=== PATIENT | male | born 1955 | race Caucasian/White ===

== ENCOUNTER → 2017-10-27 | Outpatient (CLI) | payer BC ==
[~2017-10-27] MED LIST: ALBUTEROL SULF8.5 GM INH; Aspirin PO; DILTIAZEM 24HR120 M1 PO; DILTIAZEM HCL60 MG PO; LOSARTAN POTASS50 MG PO; PEPCID20 MG PO; TESTOSTERONE GEL TOP
--- NOTE | 2017-10-27 16:28 | Diagnostic Imaging Report ---
PROCEDURE:US RETROPERITONEAL ( KIDNEY ). COMPARISON:None. INDICATIONS:Incomplete Bladder Emptying TECHNIQUE: Villeda-scale and color sonographic images of the bilateral kidneys and bladder where obtained in transverse and longitudinal planes. FINDINGS: Exam limited by patient's body habitus and overlying bowel gas RIGHT KIDNEY: 9.8 cm. cortex 2.8 cm. Cysts: None Solid masses: None Stones: None Hydronephrosis: None Echogenicity: Normal LEFT KIDNEY: 11.1 cm, cortex 2.6 cm Cysts: None Solid masses: None Stones: None Hydronephrosis: None Echogenicity: Normal Bladder: No focal lesions. No wall thickening. Bilateral ureteral jets are identified. Prevoid bladder volume 145.2 CC. Postvoid bladder volume 54.7 CC. Prostate: 5.1 x 4.2 x 4.1 cm (estimated volume 46.2 CC). The prostate has a nodular, heterogeneous appearance, and the superior portion projects into the inferior aspect of the bladder. CONCLUSION: 1. Normal bilateral renal size, and echogenicity. No hydronephrosis, stones, or focal lesions. 2. No significant postvoid residual. 3. Enlarged, heterogeneous, nodular prostate, which projects into the inferior aspect of the bladder. Jeff Chau M.D. Dictated by: Jeff Chau M.D. on 10/27/2017 at 16:38 Electronically approved by: Jeff Chau M.D. on 10/27/2017 at 16:38
--- NOTE | 2017-10-27 16:28 | Diagnostic Imaging Report ---
PROCEDURE:URINARY BLADDER ULTRASOUND COMPARISON:None. INDICATIONS:Incomplete Bladder Emptying CONCLUSION: Please refer to renal ultrasound performed at the same date and time for full dictated report. Jeff Chau M.D. Dictated by: Jeff Chau M.D. on 10/27/2017 at 16:38 Electronically approved by: Jeff Chau M.D. on 10/27/2017 at 16:38
--- NOTE | 2017-10-27 16:49 | Diagnostic Imaging Report ---
PROCEDURE:ABDOMEN 1 VIEW (KUB) COMPARISON:Patients [facility], US, US RETROPERITONEAL ( KIDNEY )., 10/27/2017, 15:05. INDICATIONS:PROSTATE ENLARGED INTO BLADDER FINDINGS: Nonobstructive bowel gas pattern with moderate amount of retained stool. No air-filled, dilated loops of bowel. No abnormal calcifications project over the renal shadows, expected course of the ureters or bladder. Left pelvic phlebolith. Degenerative disc changes in the lumbosacral spine, with presence of large osteophytes at L2-L3, L3-L4, and L4-L5. No lytic or blastic lesions. CONCLUSION: 1. Nonobstructive bowel gas pattern. 2. No lytic or blastic lesions. Jeff Chau M.D. Dictated by: Jeff Chau M.D. on 10/27/2017 at 16:58 Electronically approved by: Jeff Chau M.D. on 10/27/2017 at 16:58
== END ==
LOC: US 14:30
PROVIDERS: ATTEND Urology
DX: R39.14 Feeling of incomplete bladder emptying (principal); R31.9 Hematuria, unspecified
CPT/HCPCS: 74018; 76770; 76857

== ENCOUNTER 2019-01-03 03:20 | Observation (INO) | payer BC ==
[2019-01-03] VITALS (8 sets, daily range): BP systolic 101–147; BP diastolic 54–70
[~2019-01-03] VITALS: Ht 193 cm; Wt 109.3 kg
--- OUTSIDE RECORDS SUMMARY | 2019-01-03 03:24 | XMS REPORT ---
Author Author [facility] Address Unknown Phone Unavailable Care Team Providers Care Tank Car Loader Name Role Phone MISTY, CHARISSE Unavailable Unavailable Payers Payer Name Policy Type Policy Number Effective Date Expiration Date Problems This patient has no known problems. Allergies, Adverse Reactions, Alerts Allergy Name Allergy Type Status Severity Reaction(s) Onset Date Inactive Date Treating Clinician Comments No Known Allergies DA Active U 2018-12-20 00:00:00 Medications This patient has no known medications. Results Test Description Test Time Test Comments Text Results Atomic Results Result Comments BASIC METABOLIC PANEL 2018-12-20 13:25:00 SODIUM (test code=NA) 140 mEq/L 134-147 POTASSIUM (test code=K) 4.0 mEq/L 3.4-5.0 CHLORIDE (test code=CL) 108 mEq/L 100-108 CARBON DIOXIDE (test code=CO2) 28 mEq/L 21-33 ANION GAP (test code=GAP) 8 0-20 GLUCOSE (test code=GLU) 92 mg/dL 70-110 BLOOD UREA NITROGEN (test code=BUN) 18 mg/dL 7-18 GLOMERULAR FILTRATION RATE (test code=GFR) 67.8 80-90 Units of measure=ml/min/1.73 m2 CREATININE (test code=CREAT) 1.1 mg/dL 0.6-1.3 CALCIUM (test code=CA) 8.7 mg/dL 8.0-10.5 PROTHROMBIN [id number] 13:15:00* Test Item Value Reference Range Comments PROTHROMBIN TIME PATIENT (test code=PTP) 16.5 SECONDS 9.3-12.9 INTERNATIONAL NORMAL RATIO (test code=INR) 1.5 0.8-1.2 TARGET INR BY INDICATION Indication INR1. Prophylaxis of venous thrombosis 2.0 - 3.0 (orthopedic surgery), Prophylaxis of venous thrombosis (other than high-risk surgery), Treatment of Deep Vein Thrombosis/Pulmonary Embolism, Prevention of systemic embolism - Tissue heart valves, Acute Myocardial Infarction (to prevent systemic embolism), Valvular heart disease, Atrial Fibrillation, Bileaflet mechanical valve in aortic position.2. Mechanical prosthetic valves (high risk), 2.5 - 3.5 Presence of Lupus Anticoagulant or Antiphospholipid Antibodies, Prevention of systemic embolism - Acute Myocardial Infarction (to prevent recurrent infarct). CBC W/AUTO [id number] 13:03:00* Test Item Value Reference Range Comments WHITE BLOOD CELL (test code=WBC) 6.69 x10 3/uL 4.5-11.0 RED BLOOD CELL (test code=RBC) 4.27 x10 6/uL 4.00-5.60 HEMOGLOBIN (test code=HGB) 13.1 g/dL 12.5-16.9 HEMATOCRIT (test code=HCT) 40.0 % 37.5-50.7 MEAN CELL VOLUME (test code=MCV) 93.7 fL 81.0-99.0 MEAN CELL HGB (test code=MCH) 30.7 pg 27.0-33.0 MEAN CELL HGB CONCETRATION (test code=MCHC) 32.8 g/dL 33.0-37.0 RED CELL DISTRIBUTION WIDTH CV (test code=RDW) 12.2 % 11.5-14.5 RED CELL DISTRIBUTION WIDTH SD (test code=RDW-SD) 41.8 fL 37.0-54.0 PLATELET COUNT (test code=PLT) 214 x10 3/uL 150-400 MEAN PLATELET VOLUME (test code=MPV) 10.1 fL 7.0-9.0 NEUTROPHIL % (test code=NT%) 65.4 % 56.0-77.0 IMMATURE GRANULOCYTE % (test code=IG%) 0.3 % 0.0-2.0 LYMPHOCYTE % (test code=LY%) 20.5 % 14.0-32.0 MONOCYTE % (test code=MO%) 10.2 % 4.8-9.0 EOSINOPHIL % (test code=EO%) 2.7 % 0.3-3.7 BASOPHIL % (test code=BA%) 0.9 % 0.0-2.0 NUCLEATED RBC % (test code=NRBC%) 0.0 % 0-0 NEUTROPHIL # (test code=NT#) 4.38 x10 3/uL 2.0-7.6 IMMATURE GRANULOCYTE # (test code=IG#) 0.02 x10 3/uL 0.00-0.03 LYMPHOCYTE # (test code=LY#) 1.37 x10 3/uL 1.0-3.8 MONOCYTE # (test code=MO#) 0.68 x10 3/uL 0.1-0.8 EOSINOPHIL # (test code=EO#) 0.18 x10 3/uL 0.0-0.2 BASOPHIL # (test code=BA#) 0.06 x10 3/uL 0.0-0.2 NUCLEATED RBC # (test code=NRBC#) 0.00 x10 3/uL 0.0-0.1 MANUAL DIFF REQUIRED (test code=MDIFF) NO - XR CHEST 2 [id number] 12:59:00 FAX: Samuel Chamberlain MD [phone] [place]: St: PRE FAX: Morgan Quevedo MD [phone] Name: WEN MAY [facility] : 1955 Age/S: 63/M [address] [place] [address] Unit #: [id number] Loc: [place] [address] Phys: Morgan May MD Acct: [id number] Dis Date: Status: PRE [facility] PHONE #: [phone] Exam Date: 12/20/2018 1250 FAX #: [phone] Reason: PREOP EXAMS: CPT CODE: [id number] XR CHEST 2 V 79399 EXAM: PA and lateral chest. EXAM DATE: December 20, 2018 CLINICAL HISTORY: Preop COMPARISON: None Cardiomediastinal silhouette is within normal limits. The lungs appear free of acute disease. Marked degenerative changes are identified in the intrathoracic aorta with a mild scoliosis noted in the upper thoracic spine. Fixation device is noted in the lower cervical region. IMPRESSION: No evidence of acute cardiopulmonary disease. at 3903 Reported and signed by: Tammy Hernandez M.D. CC: Samuel Lockhart MD; Morgan May MD Technologist: Sejal Loving RT(R), RTT Trnscrd Date/Time/By: 12/20/2018 (0985) : By: LeslieCER Orig Print D/T: S: 12/20/2018 (2165) PAGE 1 Signed Report ABDOMEN 1 VIEW (KUB) [place] [address] Patient Name: WEN MAY MR #: [id number] : Age/Sex: 62/M Req #: [id number] Adm Physician: Ordered by: CHARISSE JAY MD Report #: [id number] Location: Room/Bed: Procedure: [id number] DX/ABDOMEN 1 VIEW (KUB) Exam Date: 10/27/17 Exam Time: 1450 REPORT STATUS: Signed PROCEDURE: ABDOMEN 1 VIEW (KUB) COMPARISON: [facility], US, US RETROPERITONEAL ( KIDNEY )., 10/27/2017, 15:05. INDICATIONS: PROSTATE ENLARGED INTO BLADDER FINDINGS: Nonobstructive bowel gas p attern with moderate amount of retained stool. No air-filled, dilated loops of bowel. No abnormal calcifications project over the renal shadows, expected course of the ureters or bladder. Left pelvic phlebolith. Degenerative d isc changes in the lumbosacral spine, with presence of large osteophytes at L 2-L3, L3-L4, and L4-L5. No lytic or blastic lesions. CONCLUSION: 1. Nonobstructive bowel gas pattern. 2. No lytic or blastic lesions. Lorie Chau M.D. Dictated by: Lorie Chau M.D. on 10/27/2017 at 16:58 Electronically approved by: Lorie Chau M.D. on 018 at 16:58 Dictated By: LORIE CHAU MD Electronically Si gned By: LORIE CHAU MD on 10/27/17 1658 Transcribed By: MARY on 10/27/17 1 658 COPY TO: CHARISSE JAY MD RENAL RETROPERITONEAL COMP [place] [address] Patient Name: WEN MAY MR #: [id number] : Age/Sex: 62/M Req #: [id number] Adm Physician: Ordered by: CHARISSE JAY MD Report #: [id number] Location: US Room/Bed: Procedure: [id number] US/US RENAL RETROPERITONEAL COMP E xam Date: 10/27/17 Exam Time: 1505 REPORT STATU S: Signed PROCEDURE: US RETROPERITONEAL ( KIDNEY ). COMPARISON: None. INDICATIONS: Incomplete Bladder Emptying TECHNIQUE: Villeda-scale and color so nographic images of the bilateral kidneys and bladder where obtained in trans verse and longitudinal planes. FINDINGS: Exam limited by patient's body habitus and overlying bowel gas RIGHT KIDNEY: 9.8 cm. cortex 2.8 cm. Cysts: None Solid masses: None Stones: None Hydronephrosis: None Ech ogenicity: Normal LEFT KIDNEY: 11.1 cm, cortex 2.6 cm Cysts: None Aliya d masses: None Stones: None Hydronephrosis: None Echogenicity: Normal Bladder: No focal lesions. No wall thickening. Bilateral ureteral jets are identified. Prevoid bladder volume 145.2 CC. Postvoid bladder volume 54.7 CC. Prostate: 5.1 x 4.2 x 4.1 cm (estimated volume 46.2 CC). The prostate has a nodular, heterogeneous appearance, and the superior portion projects into the inferior aspect of the bladder. CONCLUSION: 1. Normal bilat eral renal size, and echogenicity. No hydronephrosis, stones, or focal lesion s. 2. No significant postvoid residual. 3. Enlarged, heterogeneous, nodular prostate, which projects into the inferior aspect of the bladder. Lorie Chau M.D. Dictated by: Lorie Chau M.D. on 10/27/2017 at 16:38 Electronically approved by: Lorie Chau M.D. on 018 at 16:38 Dictated By: LORIE CHAU MD Electronically Si gned By: LORIE CHAU MD on 10/27/17 1638 Transcribed By: MARY on 10/27/17 1 638 COPY TO: CHARISSE JAY MD PELVIC (NON OB) FROST OR F/U [place] [address] Patient Name: WEN MAY MR #: [id number] : Age/Sex: 62/M Req #: [id number] Adm Physician: Ordered by: CHARISSE JAY MD Report #: [id number] Location: US Room/Bed: Procedure: [id number] US/US PELVIC (NON OB) FROST OR F/U E xam Date: 10/27/17 Exam Time: 1525 REPORT STATU S: Signed PROCEDURE: URINARY BLADDER ULTRASOUND COMPARISON: None. IND ICATIONS: Incomplete Bladder Emptying CONCLUSION: Please refer to r enal ultrasound performed at the same date and time for full dictated report. Lorie Chau M.D. Dictated by: Lorie Chau M.D. on 10/27/2017 at 16:38 Electronically approved by: Joo Aguilera on 10/27/2017 at 16:38 Dictated By: LORIE CHAU MD Elect ronically Signed By: LORIE CHAU MD on 10/27/17 1638 Transcribed By: MARY cooper 10/27/17 1638 COPY TO: CHARISSE JAY MD
--- NOTE | 2019-01-03 04:15 | Diagnostic Imaging Report ---
EXAMINATION: CHEST SINGLE (PORTABLE) COMPARISON: Chest x-ray 07/10/2015 INDICATION: ^chest pain ^Y DISCUSSION: Frontal view of the chest obtained at 0404 hours. HEART AND MEDIASTINUM: The heart is top normal in size. The aorta is mildly tortuous. LINES: None. LUNGS: The lungs are well inflated and clear. No pneumonia or pulmonary edema. PLEURA: No pleural effusion or pneumothorax. BONES AND SOFT TISSUES: No focal osseous lesion. Fusion plate in the lower cervical spine is partially imaged. The soft tissues are normal. IMPRESSION: No acute cardiopulmonary disease. Signed by: Dr. Haim Gillespie MD on 01/03/2019 4:12 AM
[2019-01-03 04:29] LABS: BASOPHILS % 0.4 % (0.0-1.0); EOSINOPHILS # (AUTO) 0.1 (0.0-0.4); EOSINOPHILS % 1.1 % (0.0-6.0); HEMATOCRIT 35.3 % (38.2-49.6); HEMOGLOBIN 11.8 g/dL (14.0-18.0); LYMPHOCYTES # (AUTO) 1.1 (1.0-3.2); LYMPHOCYTES % 14.8 % (18.0-39.1); MEAN CORPUSCULAR HEMOGLOBIN 30.5 pg (28-32); MEAN CORPUSCULAR HGB CONC 33.4 g/dL (31-35); MEAN CORPUSCULAR VOLUME 91.2 fL (81-99); MONOCYTES # (AUTO) 0.8 (0.2-0.8); MONOCYTES % 11.3 % (4.4-11.3); NEUTROPHILS # (AUTO) 5.3 (2.1-6.9); NEUTROPHILS % 72.1 % (38.7-80.0); PLATELET COUNT 180 x10e3/uL (140-360); RED BLOOD COUNT 3.87 x10e6/uL (4.3-5.7); RED CELL DISTRIBUTION WIDTH 12.4 % (11.7-14.4)
[2019-01-03 04:46] LABS: ALANINE AMINOTRANSFERASE 17 IU/L (0-55); ALBUMIN 3.6 g/dL (3.5-5.0); ALBUMIN/GLOBULIN RATIO 1.2 (0.8-2.0); ALKALINE PHOSPHATASE 44 IU/L (40-150); ANION GAP 12.4 mmol/L (8-16); BLOOD UREA NITROGEN 13 mg/dL (7-26); BUN/CREATININE RATIO 13 (6-25); CALCIUM 9.2 mg/dL (8.4-10.2); CARBON DIOXIDE 24 mmol/L (22-29); CHLORIDE 109 mmol/L (98-107); CREATINE KINASE 156 IU/L (30-200); CREATININE, SERUM 1.01 mg/dL (0.72-1.25); EST GLOMERULAR FILTRATION RATE > 60 ML/MIN (60-); GLUCOSE 100 mg/dL (74-118); POTASSIUM 3.4 mmol/L (3.5-5.1); SODIUM 142 mmol/L (136-145)
[2019-01-03 04:52] LABS: INR 1.73; PARTIAL THROMBOPLASTIN TIME 35.9 seconds (23.8-35.5); PROTHROMBIN TIME 20.9 seconds (11.9-14.5)
[2019-01-03] MEDS ORDERED: PANTOPRAZOLE SO40 MG PO (05:15)
[2019-01-03] MEDS ORDERED: ATORVASTATIN CA20 MG PO (05:15)
[2019-01-03] MEDS ORDERED: AMIODARONE HCL200 MG PO (05:15)
[2019-01-03] MEDS ORDERED: VENTOLIN HFA18 GM INH (05:15)
[2019-01-03] MEDS ORDERED: TOPROL XL25 MG PO (05:15)
[2019-01-03] MEDS ORDERED: VALTREX500 MG PO (05:15)
[2019-01-03] MEDS ORDERED: PLAVIX75 MG PO (05:15)
[2019-01-03] MEDS ORDERED: XARELTO20 MG PO (05:15)
[2019-01-03] MEDS ORDERED: GABAPENTIN300 MG PO (05:15)
[2019-01-03] MEDS ORDERED: ALFUZOSIN HCL10 MG PO (05:15)
[2019-01-03] MEDS ORDERED: PROSCAR5 MG PO (05:15)
[2019-01-03] MEDS ORDERED: ALBUTEROL SULF 0.083% NEB SOLN 3 ML NEB NEB PRN (05:30)
[2019-01-03] MEDS: NITROGLYCERIN 2% OINT 1 GM PKT TOP SCH ×3 (06:00→18:06)
--- NOTE | 2019-01-03 06:41 | NUR ---
PATIENT RECEIVED FROM EMERGENCY DEPARTMENT PER WHEELCHAIR AT 0620; HE'S ALERT AND ORIENTED X4, NO RESPIRATORY DISTRESS OBSERVED. SKIN INTEGRITY INTACT, NO EDEMA NOTED TO THE EXTREMITIES. PATIENT C/O CHEST PAIN WITH PAIN SCORE #3, MEDICATED WITH SCHEDULE NITROGLYCERIN PATCH ORDERED. CALL LIGHT WITHIN EASY REACH, HE'S INSTRUCTED TO CALL FOR ASSISTANCE NEEDED.
[2019-01-03] MEDS ORDERED: NON-FORMULARY MEDICATION ([Aspirin] 81 MG) PO SCH (09:00)
[2019-01-03] MEDS ORDERED: METOPROLOL SUCCINATE 25 MG TAB XL PO SCH (09:00)
[2019-01-03] MEDS: AMIODARONE HCL 200 MG TAB PO SCH (09:00)
[2019-01-03] MEDS ORDERED: LOSARTAN POTASSIUM 25 MG TAB PO SCH (09:00)
[2019-01-03] MEDS: FINASTERIDE 5 MG TAB PO SCH (09:25)
[2019-01-03] MEDS: ASPIRIN 81 MG ENTERIC COATED PO SCH (09:25)
[2019-01-03] MEDS: CLOPIDOGREL BISULFATE 75 MG TAB PO SCH (09:25)
[2019-01-03] MEDS: VALACYCLOVIR HCL 500 MG TAB PO SCH (09:25)
[2019-01-03] MEDS ORDERED: ASPIRIN 81 MG CHEW TAB PO ONE (10:30)
[2019-01-03] MEDS ORDERED: ALPRAZOLAM 0.25 MG TAB PO PRN (10:45)
[2019-01-03] MEDS ORDERED: ALPRAZOLAM 0.5 MG TAB PO PRN (10:45)
[2019-01-03] MEDS: ACETAMINOPHEN 325 MG TAB PO PRN (12:45)
[2019-01-03 13:05] LABS: CREATINE KINASE MB 2.3 ng/mL (0-5.0)
--- NOTE | 2019-01-03 17:56 | History and Physical ---
CHIEF COMPLAINT: Mr. Turner is a pleasant 63-year-old man, who presented to the emergency room in the computing machine operator hours of the with a complaint of "I could feel every single heartbeat." HISTORY OF PRESENT ILLNESS: The patient adds that he had been discharged from [facility] earlier in the day of the after he had presented to them on Monday, the with the findings of myocardial infarction, was taken to the label operator and had a stent put in the diagonal vessel. By that cath report, it was a 2.25 x 12 mm Xience stent. That diagram indicates some residual stenosis at the origin of the diagonal and minimal other coronary artery disease and a good left ventricular function. The patient reports he has had intermittent chest pain over several months and actually had a cardiac catheterization performed at [facility] about 2 weeks earlier and told it was "okay." PAST MEDICAL HISTORY: Significant for sleep apnea, hyperlipidemia, and hypertension. He has had some episodes of atrial fibrillation in the past, but none in the last 2 years by his account. He has had a remote appendectomy and cervical spine surgery. CURRENT MEDICATIONS: At home include aspirin 81 mg daily, Clopidogrel 75 mg daily, Xarelto 20 mg daily, gabapentin 600 mg at bedtime, pantoprazole 40 mg at bedtime, atorvastatin 80 mg daily, finasteride 5 mg daily, losartan 50 mg twice a day, metoprolol 25 mg twice a day, amiodarone half of a 200 mg tablet daily, and valacyclovir 500 mg daily. SOCIAL HISTORY: He has not smoked in many years. REVIEW OF SYSTEMS: GI: The patient reports he has used sucralfate in the past for a possibility of esophageal problems, but he is not certain if he actually has any esophageal problem. PHYSICAL EXAMINATION: GENERAL: At this time shows a large white man, who is alert and comfortable. VITAL SIGNS: Reported 6 feet 2 inches tall, weight 241 pounds, blood pressure 147/70. HEAD, EYES, EARS, NOSE, AND THROAT: Unremarkable. NECK: No jugular venous distention THORAX: Heart sounds S1, S2 are equal. No murmurs. LUNGS: Clear. ABDOMEN: Protuberant. Healed right lower quadrant incision. EXTREMITIES: No cyanosis, clubbing, or edema. IMAGING DATA: EKG shows sinus rhythm with PACs and no ST or T-wave changes. His current PT and INR are 20.9 and 1.73. Glucose 100, potassium 3.4. His troponin is 1.9, but his CK and CK-MB are both normal. His BNP is 74. ASSESSMENTS: 1. Anxiety. 2. Recent diagonal coronary stenting. 3. Coronary artery disease with elevated troponin, but normal CK and CK-MB. 4. Hypertension. 5. Sleep apnea. 6. History of atrial fibrillation. PLAN: As he is currently in sinus rhythm, we will withhold his Xarelto and he will get no further sucralfate. We will monitor rhythm and symptoms and consider cardiac catheterization based on his progress. MD ERASTO Salinas/ESTER /[id number] cc: Samuel Lockhart
[2019-01-03] MEDS: LOSARTAN POTASSIUM 25 MG TAB PO SCH (18:06)
[2019-01-03] MEDS: METOPROLOL SUCCINATE 25 MG TAB XL PO SCH (18:06)
--- NOTE | 2019-01-03 19:03 | NUR ---
Got report from previous nurse. Call light within reach. Patient in bed.
[2019-01-03 20:39] LABS: CREATINE KINASE MB 1.8 ng/mL (0-5.0)
[2019-01-03] MEDS: GABAPENTIN 300 MG CAP PO SCH ×3 (20:54→21:00)
[2019-01-03] MEDS ORDERED: NON-FORMULARY MEDICATION (Alfuzosin Hcl 10 MG) PO SCH ×2 (21:00)
[2019-01-03] MEDS ORDERED: RIVAROXABAN 20 MG TABLET PO SCH (21:00)
[2019-01-03] MEDS ORDERED: ATORVASTATIN 20 MG TAB PO SCH (21:00)
[2019-01-03] MEDS ORDERED: PANTOPRAZOLE SOD 40 MG TABEC PO SCH (21:00)
[2019-01-03] MEDS ORDERED: ZOLPIDEM TARTRATE 5 MG TAB PO PRN (21:00)
[2019-01-04] VITALS (15 sets, daily range): BP systolic 101–141; BP diastolic 56–77
[2019-01-04] MEDS: NITROGLYCERIN 2% OINT 1 GM PKT TOP SCH ×3 (00:31→12:00)
[2019-01-04] MEDS: ACETAMINOPHEN 325 MG TAB PO PRN (06:14)
[2019-01-04 06:35] LABS: CREATINE KINASE MB 1.4 ng/mL (0-5.0)
--- NOTE | 2019-01-04 06:45 | NUR ---
Called and talked to Dr. Perez about patient's troponin being 1.346. He said okay.
--- NOTE | 2019-01-04 07:03 | NUR ---
Gave report to oncoming nurse. Call light within reach. patient in bed.
[2019-01-04 07:14] LABS: CHOL/HDL RATIO 2.8 (3.9-4.7)
[2019-01-04] MEDS: METOPROLOL SUCCINATE 25 MG TAB XL PO SCH (09:00)
[2019-01-04] MEDS: ASPIRIN 81 MG ENTERIC COATED PO SCH (09:17)
[2019-01-04] MEDS: AMIODARONE HCL 200 MG TAB PO SCH (09:17)
[2019-01-04] MEDS: VALACYCLOVIR HCL 500 MG TAB PO SCH (09:18)
[2019-01-04] MEDS: CLOPIDOGREL BISULFATE 75 MG TAB PO SCH (09:18)
[2019-01-04] MEDS: LOSARTAN POTASSIUM 25 MG TAB PO SCH (09:18)
[2019-01-04] MEDS: FINASTERIDE 5 MG TAB PO SCH (09:18)
[2019-01-04] MEDS ORDERED: SODIUM CHLORIDE 0.9% 1000ML 1,000 ML IV SCH (09:44)
[2019-01-04] MEDS ORDERED: MIDAZOLAM HCL 2 MG/2 ML VIAL ONE (11:02)
[2019-01-04] MEDS ORDERED: FENTANYL CITRATE/PF 100MCG/2 ML INJ ONE (11:03)
[2019-01-04] MEDS ORDERED: HEPARIN SOD/SOD CHLORIDE 2,000 ML ONE (11:03)
[2019-01-04] MEDS ORDERED: SODIUM CHLORIDE 0.9% 1000ML 1,000 ML ONE (11:03)
[2019-01-04] MEDS ORDERED: LIDOCAINE HCL 2% LOCAL 20 ML VIAL ONE (11:03)
[2019-01-04] MEDS ORDERED: IOPAMIDOL 370 MG/ML 200 ML INFUS..BTL INJ ONE ×2 (11:03→12:04)
--- NOTE | 2019-01-04 11:30 | NUR ---
patient to chemistry lab instructor at this time.
--- NOTE | 2019-01-04 12:18 | NUR ---
1218 Received pt from labor union business representative Identifier x2 [facility] no fix Diagnostic Dr Perez spoke with pt in RM #10 report from Joshua SAUCEDO Denies CP or SOB no gross sign pain ,pallor, pressure or dysrhythmia. Left groin sheath pull at 1222 stasis at 1245 with left groin pressure dressing in place with Microfoam tape. PPx 4 DP/PT palpable Iv infusing to rt ac#18 no s/s infiltration. Abdomen soft denies necessity to urinate or defecate Offered po intake. 1300 called report to LEWIS Rivera vs stable monitor NSR. Pt has copy of diagram. Transported to floor care via bed and tele on. Left groin w/o signs hematoma or bleeding. Down time 6hr up at 1845pm ds/lewis
[2019-01-04] MEDS ORDERED: ATROPINE SULFATE 0.1 MG/ML 10ML SYR ONE (12:30)
[2019-01-04] MEDS ORDERED: ACETAMINOPHEN 325 MG TAB PO PRN (12:30)
--- NOTE | 2019-01-04 13:05 | NUR ---
1305 on arrival back to floor care pt has c/o necessary to be "urinary cath -states happened before" Miguel SAUCEDO floor nurse will f/o with obtaining catheterization order. Pt bladder palpated and was flat however history of prostrate urine flow issues. ds/rn
--- NOTE | 2019-01-04 13:38 | NUR ---
patient back from cath lab manager. NS started at 125cc/hr. patient straight cathed per Dr Gr due to prostate BPH. left groin pressure dressing in place with no hematoma or bleeding. vitals stable with no distress.
--- NOTE | 2019-01-05 20:57 | Operative Report ---
DATE OF PROCEDURE: 01/04/2019 SURGEON: Jarvis Perez MD PROCEDURE: Cardiac cath. PROCEDURE IN DETAIL: The patient was brought to the woven label designer in a fasting, partially sedated state, premedicated 1 mg Versed and left groin prepped and scrubbed with 2% Xylocaine and 4-Djiboutian sheath placed in the left common femoral artery. Cardiac cath was performed with 4-Djiboutian pigtail, 4-Djiboutian right Jb 4, and 4-Djiboutian left Jb 5 diagnostic catheters. The left ventriculogram shows normal left ventricular function. EF about 60%. His ascending aorta is somewhat dilated, but no evidence of any dissection. The right coronary artery is a dominant, patent, and unremarkable. The left coronary artery, the left main, ramus, circumflex, and OM are unremarkable. The proximal LAD is unremarkable. The 1st diagonal is a large vessel with approximately 50% stenosis in its proximal portion and a patent stent in its midportion. The 2nd and 3rd diagonals are tiny vessels and the distal LAD appears also unremarkable. The catheters and sheath were removed and pressure held for additional time, total of 20 minutes and with a pressure bandage applied. He is sent to his room in stable condition. No complications. No blood loss. FINAL IMPRESSION: 1. Normal left ventricular function with EF about 60%. 2. Patent stent in the 1st diagonal with 50% proximal stenosis. 3. No other significant coronary disease. 4. Dilated aortic root without evidence of dissection. Recommendation is for medical management. MD ERASTO Salinas/MACIELL /[id number] cc:
--- NOTE | 2019-01-05 21:58 | Discharge Summary ---
HISTORY: Mr. Turner is an anxious 63-year-old man with multiple problems including sleep apnea and recent myocardial infarction with acute stenting. HOSPITAL COURSE: He had presented with palpitations and chest discomfort and was monitored over the where he had troponin slightly elevated but normal CK and CK-MBs. It was felt that with his difficulties that he would be most comfortable and confident if he knew exactly how his stents and coronaries were doing, so therefore on January 04, left heart catheterization was performed that showed patent stent and 50% stenosis of the proximal diagonal vessel. His ascending aorta is dilated, but this had already been determined by his family doctor with previous CAT scans without evidence of dissection. He is discharged home to resume his previous medications both to withhold his Xarelto as he is in sinus rhythm and he will use Ambien as needed for sleep. DISCHARGE DIAGNOSES: 1. Recent anterior myocardial infarction. 2. Patent stent in the diagonal. 3. Dilated aortic root. 4. Sleep apnea. 5. History of atrial fibrillation, currently in sinus rhythm. MD ERASTO Salinas/ESTER /[id number]
== END 2019-01-04 18:46 | disposition home or self-care (01) ==
LOC: ER 03:20 → ERHOLD 05:15 → IMCU 06:52
PROVIDERS: ADMIT Internal Medicine Cardiovascular Disease; ATTEND Internal Medicine Cardiovascular Disease
DX: R07.9 Chest pain, unspecified (principal); I25.10 Atherosclerotic heart disease of native coronary artery without angina pectoris; I10 Essential (primary) hypertension; F41.9 Anxiety disorder, unspecified; I25.2 Old myocardial infarction; E78.5 Hyperlipidemia, unspecified; Z95.5 Presence of coronary angioplasty implant and graft; Z82.49 Family history of ischemic heart disease and other diseases of the circulatory system; G47.30 Sleep apnea, unspecified; I48.91 Unspecified atrial fibrillation; Z79.01 Long term (current) use of anticoagulants
CPT/HCPCS: 36415 ×2; 71045; 80053; 80061; 82550 ×2; 82553 ×2; 83880; 84484 ×2; 85025; 85610; 85730; 93005 ×2; 93306; 93458; 99285; C1766; G0378 ×2; J2001; J2250; J7030; Q9967